=== PATIENT | female | born 1970 | race Caucasian/White ===

== ENCOUNTER → 2018-05-14 | Outpatient (CLI) | payer OTHER | END | disposition home or self-care (01) | LOC: RAD 18:14 | DX: M06.4 Inflammatory polyarthropathy (principal) ==

== ENCOUNTER 2025-03-20 15:46 | Outpatient (CLI) | payer OTHER | END 2025-03-20 15:56 | disposition home or self-care (01) | LOC: RAD 15:46 | DX: S82.892A Other fracture of left lower leg, initial encounter for closed fracture (principal); X58.XXXA Exposure to other specified factors, initial encounter; Y93.9 Activity, unspecified; Y92.9 Unspecified place or not applicable; Y99.9 Unspecified external cause status ==